=== PATIENT | male | born 1945 | race Two or more races ===

== ENCOUNTER 2020-05-12 12:30 | Outpatient (CLI) | payer MEDICARE | END 2020-05-12 23:59 | disposition home or self-care (01) | LOC: MSC 12:30 | PROVIDERS: ATTEND Internal Medicine | DX: E11.9 Type 2 diabetes mellitus without complications (principal); Z79.4 Long term (current) use of insulin; Z79.84 Long term (current) use of oral hypoglycemic drugs; Z94.0 Kidney transplant status; I70.1 Atherosclerosis of renal artery; I10 Essential (primary) hypertension; I73.9 Peripheral vascular disease, unspecified; F41.0 Panic disorder [episodic paroxysmal anxiety]; Z79.01 Long term (current) use of anticoagulants; Z79.52 Long term (current) use of systemic steroids ==